=== PATIENT | female | born 1960 | race Caucasian/White ===

== ENCOUNTER → 2016-12-25 | Outpatient (CLI) | payer OTHER | LOC: FIMAGING 08:13 | PROVIDERS: ATTEND Family Medicine | DX: Z12.31 Encounter for screening mammogram for malignant neoplasm of breast (principal); Z80.3 Family history of malignant neoplasm of breast | CPT/HCPCS: G0202 ==

== ENCOUNTER 2018-01-25 04:42 | Observation (INO) | payer OTHER ==
[2018-01-25] MEDS ORDERED: NS 500 ML IV ONE (05:16)
--- NOTE | 2018-01-25 05:20 | EDPHY ---
H & P Stated Complaint: pain with breathing to R back and flank Time Seen by Provider: 01/25/18 05:08 HPI/ROS: HPI The patient presents with shortness of breath which started yesterday morning and has been persistent getting progressively worse and associated with right- sided pleuritic pain which she feels in her posterior chest wall. She tried taking a muscle relaxer yesterday to see if this would help, however it did not. The pain is moderate in severity and also worse with movement. She has not had a cough though does report a low-grade fever. She has 3.5 weeks status post left knee replacement and 12.5 weeks out of right knee replacement. REVIEW OF SYSTEMS 10 systems were reviewed and negative with the exception of the elements mentioned in the history of present illness. PMHx: Recent total knee arthroplasty Soc Hx: Here with her son PHYSICAL General Appearance: Alert, no distress Eyes: Pupils equal and round no pallor or injection ENT, Mouth: Mucous membranes moist Respiratory: There are no retractions, lungs are clear to auscultation, there is some tenderness to palpation of her right posterior chest wall Cardiovascular: Tachycardic rate and regular rhythm Gastrointestinal: Abdomen is soft and non-tender, no masses, bowel sounds normal Neurological: A&O, moves all extremities Skin: Warm and dry, no rashes Musculoskeletal: Neck is supple non tender Extremities: symmetrical, full range of motion Psychiatric: Patient is oriented X 3, there is no agitation Source: Patient Exam Limitations: No limitations - Personal History Current Tetanus/Diphtheria Vaccine: Yes - Medical/Surgical History Hx Asthma: No Hx Chronic Respiratory Disease: No Hx Diabetes: No Hx Cardiac Disease: No Hx Renal Disease: No Hx Cirrhosis: No Hx Alcoholism: No Hx HIV/AIDS: No Hx Splenectomy or Spleen Trauma: No Other PMH: L knee replacement 12/30/17 R knee replacement in october 2017. R shoulder sx - Social History Smoking Status: Never smoked Constitutional: Initial Vital Signs Temperature (C) 37.6 C 01/25/18 04:43 Heart Rate 118 H 01/25/18 04:43 Respiratory Rate 20 01/25/18 04:43 Blood Pressure 154/94 H 01/25/18 04:43 O2 Sat (%) 93 01/25/18 04:43 O2 Delivery Mode Room Air Allergies/Adverse Reactions: doxycycline Allergy (Verified 01/25/18 04:47) Home Medications: Medication Instructions Recorded ARMOUR THYROID 01/25/18 Meloxicam 01/25/18 Methocarbamol 01/25/18 Oxycodone HCl 01/25/18 metFORMIN HCL 01/25/18 Medical Decision Making - Diagnostics Imaging Results: CT chest shows bilateral PEs right greater than left, discussed with Dr. Babb of Radiology. Chest x-ray shows possible infiltrate right lower lobe, interpreted by me, radiology interpretation is pending. Imaging: Discussed imaging studies w/ gum scoring machine operator Radiologist Differential Diagnosis: 57-year-old female who presents with pleuritic right-sided chest pain associated with shortness of breath. Here she is tachycardic and slightly hypoxic though is breathing comfortably. Differential diagnosis includes pulmonary embolism, pleural effusion, pneumonia. In the emergency department, patient declined any medication for pain. Labs were checked and did reveal elevated D-dimer, thus CT scan of her chest was ordered. CT scan of her chest revealed bilateral PEs. Troponin and are BNP are normal. I have ordered an initial dose of Lovenox, I will admit her to the hospitalist given her tachycardia and symptoms. - Data Points Laboratory Results: Laboratory Results 01/25/18 05:20 01/25/18 05:20 01/25/18 01/25/18 01/25/18 05:40 05:20 05:20 WBC RBC Hgb Hct MCV MCH MCHC RDW Plt Count MPV Neut % (Auto) Lymph % (Auto) Stephens % (Auto) Eos % (Auto) Baso % (Auto) Nucleat RBC Rel Count Absolute Neuts (auto) Absolute Lymphs (auto) Absolute Monos (auto) Absolute Eos (auto) Absolute Basos (auto) Absolute Nucleated RBC Immature Gran % Immature Gran # D-Dimer 3.46 ug/mLFEU H ug/mLFEU (0.00-0.50) Sodium Potassium Chloride Carbon Dioxide Anion Gap BUN Creatinine Estimated GFR Glucose Calcium POC Troponin I 0.01 ng/mL ng/mL (0.00-0.08) NT-Pro-B Natriuret Pep 37 pg/mL pg/mL (0-125) 01/25/18 01/25/18 05:20 05:20 WBC 9.68 10^3/uL H 10^3/uL (3.80-9.50) RBC 4.58 10^6/uL 10^6/uL (4.18-5.33) Hgb 12.7 g/dL g/dL (12.6-16.3) Hct 39.1 % % (38.0-47.0) MCV 85.4 fL fL (81.5-99.8) MCH 27.7 pg L pg (27.9-34.1) MCHC 32.5 g/dL g/dL (32.4-36.7) RDW 12.8 % % (11.5-15.2) Plt Count 283 10^3/uL 10^3/uL (150-400) MPV 9.9 fL fL (8.7-11.7) Neut % (Auto) 71.0 % % (39.3-74.2) Lymph % (Auto) 18.1 % % (15.0-45.0) Stephens % (Auto) 8.6 % % (4.5-13.0) Eos % (Auto) 1.8 % % (0.6-7.6) Baso % (Auto) 0.3 % % (0.3-1.7) Nucleat RBC Rel Count 0.0 % % (0.0-0.2) Absolute Neuts (auto) 6.88 10^3/uL H 10^3/uL (1.70-6.50) Absolute Lymphs (auto) 1.75 10^3/uL 10^3/uL (1.00-3.00) Absolute Monos (auto) 0.83 10^3/uL H 10^3/uL (0.30-0.80) Absolute Eos (auto) 0.17 10^3/uL 10^3/uL (0.03-0.40) Absolute Basos (auto) 0.03 10^3/uL 10^3/uL (0.02-0.10) Absolute Nucleated RBC 0.00 10^3/uL 10^3/uL (0-0.01) Immature Gran % 0.2 % % (0.0-1.1) Immature Gran # 0.02 10^3/uL 10^3/uL (0.00-0.10) D-Dimer Sodium 141 mEq/L mEq/L (135-145) Potassium 4.9 mEq/L mEq/L (3.3-5.0) Chloride 105 mEq/L mEq/L (97-110) Carbon Dioxide 25 mEq/l mEq/l (22-31) Anion Gap 11 mEq/L mEq/L (8-16) BUN 14 mg/dL mg/dL (7-23) Creatinine 0.7 mg/dL mg/dL (0.6-1.0) Estimated GFR > 60 Glucose 123 mg/dL H mg/dL (70-100) Calcium 9.9 mg/dL mg/dL (8.5-10.4) POC Troponin I NT-Pro-B Natriuret Pep Medications Given: Discontinued Medications Sodium Chloride (Ns) 500 mls @ 1,000 mls/hr IV EDNOW ONE PRN Reason: Protocol Stop: 01/25/18 05:45 Last Admin: 01/25/18 05:33 Dose: 500 mls Point of Care Test Results: Chemistry 01/25/18 05:40 POC Troponin I 0.01 ng/mL ng/mL (0.00-0.08) Departure - Departure Disposition: [facility] Inpatient Acute Clinical Impression: Pulmonary emboli Qualifiers: Pulmonary embolism type: other Chronicity: acute Acute cor pulmonale presence: without acute cor pulmonale Qualified Code(s): I26.99 - Other pulmonary embolism without acute cor pulmonale Condition: Fair
[2018-01-25 05:30] LABS: PLATELET COUNT 283 10^3/uL (150-400)
[2018-01-25] MEDS ORDERED: IOPAMIDOL (ISOVUE 370) 100 ML BTL IV ONE (06:00)
[2018-01-25] MEDS ORDERED: NS 1,000 ML IV ONE (07:01)
[2018-01-25] MEDS ORDERED: ONDANSETRON 4 MG/2 ML VIAL IVP PRN (07:03)
[2018-01-25] MEDS ORDERED: ONDANSETRON DISINTEGRATING 4 MG TAB PO PRN (07:03)
--- NOTE | 2018-01-25 07:34 | CPEKG ---
Test Reason : OPEN Blood Pressure : / mmHG Vent. Rate : 099 BPM Atrial Rate : 099 BPM P-R Int : 157 ms QRS Dur : 078 ms QT Int : 344 ms P-R-T Axes : 048 009 035 degrees QTc Int : 442 ms Sinus rhythm Low voltage, precordial leads Confirmed by Kelsea Blank ([id number]) on 01/25/2018 7:34:06 AM Referred By: Confirmed By:Kelsea Blank
--- NOTE | 2018-01-25 08:00 | PDGENHP ---
History and Physical - Chief Complaint Pleuritic chest pain - History of Present Illness 57 yo F w/ hx of hypothyroidism and recent b/l TKA's presents with pleuritic chest pain. Patient had R TKA 12 weeks ago and L TKA 3.5 weeks ago. Yesterday she developed right, posterior pleuritic chest pain. This persisted throughout the day so she came to the ED. She denies shortness of breath, orthopnea, or leg swelling beyond that caused by her post-surgical state. In the ED CTPE was notable for bilateral pulmonary emboli. She is tachycardic and with ongoing pleuritic pain so she is being admitted for the management fo this. Case discussed with ED physician Dr. Blank; records reviewed in EMR. History Information - Allergies/Home Medication List Allergies/Adverse Reactions: doxycycline Allergy (Verified 01/25/18 04:47) Home Medications: ARMOUR THYROID 01/25/18 [Last Taken Unknown] Meloxicam 01/25/18 [Last Taken Unknown] Methocarbamol 01/25/18 [Last Taken Unknown] Oxycodone HCl 01/25/18 [Last Taken Unknown] metFORMIN HCL 01/25/18 [Last Taken Unknown] I have personally reviewed and updated: family history, medical history - Past Medical History Additional medical history: Hypothyroid - Surgical History Additional surgical history: B/L TKA's - Family History Additional family history: Denies family history of VTE - Social History Smoking Status: Never smoked Review of Systems Review of Systems: ROS: 10pt was reviewed & negative except for what was stated in HPI & below Physical Exam Physical Exam: Temp Pulse Resp BP Pulse Ox 37.2 C 98 20 140/85 H 94 01/25/18 07:51 01/25/18 07:51 01/25/18 07:51 01/25/18 07:51 01/25/18 07:51 Constitutional: no apparent distress, obese Eyes: PERRL, EOMI Ears, Nose, Mouth, Throat: moist mucous membranes, no oral mucosal ulcers Cardiovascular: no murmur, rub, or gallop, tachycardia Respiratory: no respiratory distress, clear to auscultation Gastrointestinal: normoactive bowel sounds, soft, non-tender abdomen Skin: warm, normal color Musculoskeletal: full muscle strength, no muscle tenderness Neurologic: AAOx3, CN II-XII Intact Psychiatric: interacting appropriately, not anxious Lab Data & Imaging Review 01/25/18 05:20 01/25/18 05:20 WBC 9.68 10^3/uL (3.80-9.50) H 01/25/18 05:20 RBC 4.58 10^6/uL (4.18-5.33) 01/25/18 05:20 Hgb 12.7 g/dL (12.6-16.3) 01/25/18 05:20 Hct 39.1 % (38.0-47.0) 01/25/18 05:20 MCV 85.4 fL (81.5-99.8) 01/25/18 05:20 MCH 27.7 pg (27.9-34.1) L 01/25/18 05:20 MCHC 32.5 g/dL (32.4-36.7) 01/25/18 05:20 RDW 12.8 % (11.5-15.2) 01/25/18 05:20 Plt Count 283 10^3/uL (150-400) 01/25/18 05:20 MPV 9.9 fL (8.7-11.7) 01/25/18 05:20 Neut % (Auto) 71.0 % (39.3-74.2) 01/25/18 05:20 Lymph % (Auto) 18.1 % (15.0-45.0) 01/25/18 05:20 [place] % (Auto) 8.6 % (4.5-13.0) 01/25/18 05:20 Eos % (Auto) 1.8 % (0.6-7.6) 01/25/18 05:20 Baso % (Auto) 0.3 % (0.3-1.7) 01/25/18 05:20 Nucleat RBC Rel Count 0.0 % (0.0-0.2) 01/25/18 05:20 Absolute Neuts (auto) 6.88 10^3/uL (1.70-6.50) H 01/25/18 05:20 Absolute Lymphs (auto) 1.75 10^3/uL (1.00-3.00) 01/25/18 05:20 Absolute Monos (auto) 0.83 10^3/uL (0.30-0.80) H 01/25/18 05:20 Absolute Eos (auto) 0.17 10^3/uL (0.03-0.40) 01/25/18 05:20 Absolute Basos (auto) 0.03 10^3/uL (0.02-0.10) 01/25/18 05:20 Absolute Nucleated RBC 0.00 10^3/uL (0-0.01) 01/25/18 05:20 Immature Gran % 0.2 % (0.0-1.1) 01/25/18 05:20 Immature Gran # 0.02 10^3/uL (0.00-0.10) 01/25/18 05:20 D-Dimer 3.46 ug/mLFEU (0.00-0.50) H 01/25/18 05:20 Sodium 141 mEq/L (135-145) 01/25/18 05:20 Potassium 4.9 mEq/L (3.3-5.0) 01/25/18 05:20 Chloride 105 mEq/L (97-110) 01/25/18 05:20 Carbon Dioxide 25 mEq/l (22-31) 01/25/18 05:20 Anion Gap 11 mEq/L (8-16) 01/25/18 05:20 BUN 14 mg/dL (7-23) 01/25/18 05:20 Creatinine 0.7 mg/dL (0.6-1.0) 01/25/18 05:20 Estimated GFR > 60 01/25/18 05:20 Glucose 123 mg/dL (70-100) H 01/25/18 05:20 Calcium 9.9 mg/dL (8.5-10.4) 01/25/18 05:20 POC Troponin I 0.01 ng/mL (0.00-0.08) 01/25/18 05:40 NT-Pro-B Natriuret Pep 37 pg/mL (0-125) 01/25/18 05:20 Imaging Review: Technically suboptimal exam w/ pt motion and suboptimal contrast bolus Bilateral PEs, RT>LT Bilateral lower lung opacities, RT>LT ? possible developing small pulmonary infart RT lung base Called to ER @ 0700 hrs Assessment & Plan Assessment: 57 yo F presents with bilateral, provoked PE's. Plan: 1. Acute, bilateral pulmonary emboli - Provoked by recent knee surgery; patient has no personal or family history of VTE. BP is WNL, but she is mildly tachycardic with ongoing pleuritic chest pain. - Lovenox 1 mg/kg SQ BID - Monitor on telemetry 2. Recent b/l BKA's - S/p R BKA 12 weeks ago and L BKA 3.5 weeks ago. 3. Hypothyroid - Continue LTX 4. Morbid obesity - On metformin Diet - Regular Code - Full Ppx - Treatment dose Lovenox Dispo - Admit under observation status
[2018-01-25] MEDS: ACETAMINOPHEN 325 MG TAB PO PRN ×2 (13:45→21:31)
--- NOTE | 2018-01-25 14:38 | HOSPPROG ---
Hospitalist Progress Note Assessment/Plan: Admission day hospitalist follow-up visit Patient now still with some pleuritic pain but does not feel short of breath or lightheaded, no leg pain Blood pressures are good, mildly tachycardic with pulse in the high 90s to 100, respirations look comfortable on room air Some edema of legs but not more than she is used to having chronically I reviewed with her in detail the nature of clots in the treatment with medication and rationale for that. Reviewed risks of bleeding and safety precautions that her required. I reviewed the options of using Coumadin or NOAC medication to treat this and she is pondering those options and will have further discussion. Objective: Vital Signs Temp Pulse Resp BP Pulse Ox 37.4 C 96 20 142/81 H 94 01/25/18 13:53 01/25/18 13:53 01/25/18 13:53 01/25/18 13:53 01/25/18 13:53 01/24/18 01/25/18 01/26/18 06:59 06:59 06:59 Intake Total 500 Output Total 2 Balance 498 ICD10 Worksheet Patient Problems: Problems Problem Status Onset Pulmonary emboli Acute
--- NOTE | 2018-01-25 15:33 | ASMTCMCOM ---
CM Note CM Note Notes: Case Management Chart Review for Discharge Support: Patient is a 57 y/o female, she presented to [facility] ED for pleuritic chest pain, admitted for bilateral pulmonary emboli. Health coverage is [employer]. Patient is employed at [employer], her son was present at ED. CM met with patient, she is recovering from recent knee replacements, she has questions about ability to continue physical therapy while inpatient, CM wrote this on the board for her to address with provider. CM asked about support at home, Sandi states her son is living with her at home. 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 Discharge date TBD. CM to follow. Current Discharge Plan: Date TBD likely independent. Date Signed: 01/25/2018 03:33 PM Electronically Signed By:Beatriz Bell
[2018-01-25] MEDS ORDERED: ENOXAPARIN 120 MG/0.8 ML SYR SC SCH (21:00)
[2018-01-25] MEDS: MELATONIN 3 MG TAB PO SCH (21:31)
[2018-01-25] MEDS: ENOXAPARIN 120 MG/0.8 ML SYR SC SCH (21:31)
[2018-01-26] MEDS: ACETAMINOPHEN 325 MG TAB PO PRN (07:08)
[2018-01-26] MEDS ORDERED: METHOCARBAMOL 750 MG TAB PO PRN (08:47)
[2018-01-26] MEDS: THYROID 60 MG TAB PO SCH (08:59)
[2018-01-26] MEDS: ENOXAPARIN 120 MG/0.8 ML SYR SC SCH (09:00)
--- NOTE | 2018-01-26 16:05 | HOSPPROG ---
Hospitalist Progress Note Assessment/Plan: DIAGNOSES: * acute pulmonary embolism with tachycardia but stable blood pressures and respirations * high suspicion for bilateral PEs with bilateral knee surgeries and bilateral leg edema Patient risk level [id number] but will treat for 1 more day here in the hospital with her tachycardia and her mobility issues with her recent bilateral knee replacements. I had further discussion with the patient in detail again today about anticoagulation choices. She did check in with her insurance and has good coverage with the NOACs so at this point will begin her on Eliquis and plan on discharge with that. PLANS: * Switch to Eliquis at 10 mg twice daily now eventual decreased to 5 mg per usual PE protocol * Will have physical therapy start working with her here for her knees * Plan home 1-2 days most likely if she remains stable and is able to ambulate well enough SUBJECTIVE: Feels better still with some chest pain and mild dyspnea No fever symptoms Did do a little walking today No bleeding or bruising OBJECTIVE Vitals reviewed: Remains tachycardic up to 103 during my exam at rest in bed Exam: alert oriented skin warm dry color ok resps not labored lungs clear BSs heart regular abd soft nondistended nontender, bowel sounds present limbs warm, mild bilateral edema; recent knee surgery incision sites look good bilaterally iv site ok Objective: Vital Signs Temp Pulse Resp BP Pulse Ox 37.7 C 96 16 143/77 H 96 01/26/18 15:38 01/26/18 15:38 01/26/18 15:38 01/26/18 15:38 01/26/18 15:38 01/25/18 01/26/18 01/27/18 06:59 06:59 06:59 Intake Total 1250 Output Total 2 Balance 1248 ICD10 Worksheet Patient Problems: Problems Problem Status Onset Pulmonary emboli Acute
[2018-01-26] MEDS ORDERED: metFORMIN SR 500 MG TAB PO SCH (18:00)
[2018-01-26] MEDS: APIXABAN 5 MG TAB PO SCH (22:08)
[2018-01-26] MEDS: MELATONIN 3 MG TAB PO SCH (22:08)
[2018-01-27] MEDS ORDERED: LACTULOSE 20 GM/30 ML UDCUP PO PRN (02:29)
[2018-01-27] MEDS ORDERED: MAGNESIUM HYDROXIDE 30 ML UDCUP PO PRN (02:29)
[2018-01-27] MEDS ORDERED: POLYETHYLENE GLYCOL 3350 17 GM PKT PO PRN (02:29)
[2018-01-27] MEDS ORDERED: BISACODYL 10 MG SUPP PR PRN (02:29)
[2018-01-27 08:43] VITALS: BP 125/83
--- NOTE | 2018-01-27 08:54 | HOSPPROG ---
Hospitalist Progress Note Assessment/Plan: 57 yo F presents with bilateral, provoked PE's. *Acute, bilateral pulmonary emboli - Provoked by recent knee surgery - tachycardia resolved - was treated initially w Lovenox and now on Eliquis * Recent b/l BKA's - S/p R BKA 12 weeks ago and L BKA 3.5 weeks ago. *Hypothyroid - Continue LTX *Morbid obesity - On metformin *Plan: dc home with close f/u w her PCP Subjective: Sandi feels great, wants to go home. Objective: Vital Signs Temp Pulse Resp BP Pulse Ox 37.1 C 89 16 125/83 H 95 01/27/18 08:00 01/27/18 08:00 01/27/18 08:00 01/27/18 08:00 01/27/18 08:00 01/26/18 01/27/18 01/28/18 05:59 05:59 05:59 Intake Total 1250 150 Output Total 2 Balance 1248 150 - Physical Exam Constitutional: no apparent distress, appears nourished, obese Eyes: PERRL Ears, Nose, Mouth, Throat: hearing normal Cardiovascular: regular rate and rhythym, No tachycardia Respiratory: no respiratory distress Skin: warm, other (left knee incision well approximated, no redness or drainage) Neurologic: AAOx3 Psychiatric: interacting appropriately ICD10 Worksheet Patient Problems: Problems Problem Status Onset Pulmonary emboli Acute
[2018-01-27] MEDS ORDERED: SENNOSIDES/DOCUSATE SODIUM TAB PO SCH (09:00)
[2018-01-27] MEDS: THYROID 60 MG TAB PO SCH (09:08)
[2018-01-27] MEDS: APIXABAN 5 MG TAB PO SCH (09:08)
--- NOTE | 2018-01-27 12:26 | GDS ---
DISCHARGE DIAGNOSES: 1. Acute bilateral pulmonary emboli. 2. Status post knee arthroplasties. 3. Hypothyroidism. 4. Morbid obesity. BRIEF HISTORY: Sandi Sifuentes is a 57-year-old female who had recent bilateral total knee arthroplasties, who presented to the emergency room with pleuritic chest pain. She had a right TKA 12 weeks ago and most recently left TKA approximately 3.5 weeks ago. She developed right posterior pleuritic chest pain. She had a CTA that was notable for bilateral pulmonary emboli. She was tachycardic and also had some ongoing pleuritic pain. She was treated initially with Lovenox. This has been changed to Eliquis. She will be discharged home and further followup with her primary care provider. HOSPITAL COURSE: 1. Acute bilateral pulmonary emboli. These were provoked by recent surgery. She is feeling markedly better. Her tachycardia has resolved. She will take Eliquis as prescribed. 2. Recent bilateral BKAs, stable. She is healing well. 3. Hypothyroidism, on Synthroid. 4. Morbid obesity, on metformin. DISCHARGE CONDITION: Stable. Blood pressure is 125/83, respiratory rate is 16 , pulse of 89, temperature 37.1 Celsius, O2 saturation on room air 95%. MEDICATIONS AT DISCHARGE: Please see the EMR. DISCHARGE INSTRUCTIONS: 1. To continue the Eliquis as prescribed. She will likely need this for a minimum of 3 months. 2. Follow up with Orthopedic Surgery and activity per their recommendation. 3. To be aware of medications that will impact her with bleeding since she is on the Eliquis. I told her to notify her primary care doctor any time she goes to the dentist or has any surgical procedures to let them know that she is on the Eliquis. /[id number]/MODL MTDD
== END 2018-01-27 11:20 | disposition home or self-care (01) ==
LOC: INTOOBSV 07:05 → F3E 08:00
PROVIDERS: ADMIT Student in an Organized Health Care Education/Training Program; ATTEND Student in an Organized Health Care Education/Training Program
DX: I26.99 Other pulmonary embolism without acute cor pulmonale (principal); E86.9 Volume depletion, unspecified; Z96.652 Presence of left artificial knee joint; E03.9 Hypothyroidism, unspecified; E66.01 Morbid (severe) obesity due to excess calories
CPT/HCPCS: 71046; 71275; 93005; 96360; 96372; 99285; G0378; 84484-PO; J1650; Q9967